=== PATIENT | female | born 1995 | race Caucasian/White ===

== ENCOUNTER → 2018-01-24 | Outpatient (CLI) | payer BC, MEDICAID | LOC: LABNPT 15:03 | PROVIDERS: ATTEND Obstetrics & Gynecology | DX: O28.8 Other abnormal findings on antenatal screening of mother (principal) | CPT/HCPCS: 82570; 84156 ==

== ENCOUNTER → 2018-01-31 | Outpatient (CLI) | payer MEDICAID | LOC: LABNPT 11:02 | PROVIDERS: ATTEND Obstetrics & Gynecology | DX: Z53.9 Procedure and treatment not carried out, unspecified reason (principal) ==

== ENCOUNTER → 2018-01-31 | Outpatient (CLI) | payer MEDICAID | LOC: LABNPT 11:07 | PROVIDERS: ATTEND Obstetrics & Gynecology | DX: O28.8 Other abnormal findings on antenatal screening of mother (principal) | CPT/HCPCS: 82570; 84156 ==

== ENCOUNTER 2018-04-04 05:46 | Inpatient (IN) | payer MEDICAID ==
[2018-04-04] VITALS (21 sets, daily range): BP systolic 112–171; BP diastolic 58–101
[~2018-04-04] VITALS: Ht 177.8 cm; Wt 69.9 kg
[2018-04-04] MEDS ORDERED: PREN1TAB79 PO (05:56)
[2018-04-04] MEDS ORDERED: D5 LR IV SOLUTION 1,000 ML IV SCH (06:19)
[2018-04-04 07:05] LABS: BASOPHILS % (AUTO) 0 % (0-10); EOSINOPHILS # (AUTO) 0.1 10^3/uL (0.0-0.3); EOSINOPHILS % (AUTO) 1 % (0-10); HEMATOCRIT 33 % (35-52); HEMOGLOBIN 10.8 G/DL (11.5-16.0); LYMPHOCYTES # (AUTO) 2.4 X 10^3 (1.0-4.0); LYMPHOCYTES % (AUTO) 25 % (12-44); MEAN CORPUSCULAR HEMOGLOBIN 26 PG (25-34); MEAN CORPUSCULAR HGB CONC 32 G/DL (32-36); MEAN CORPUSCULAR VOLUME 80 FL (80-99); MONOCYTES # (AUTO) 0.5 X 10^3 (0.0-1.0); MONOCYTES % (AUTO) 5 % (0-12); NEUTROPHILS # (AUTO) 6.5 X 10^3 (1.8-7.8); NEUTROPHILS % (AUTO) 69 % (42-75); PLATELET COUNT 233 10^3/uL (130-400); RED BLOOD COUNT 4.18 10^6/uL (4.35-5.85); RED CELL DISTRIBUTION WIDTH 17.6 % (10.0-14.5); WHITE BLOOD COUNT 9.5 10^3/uL (4.3-11.0)
[2018-04-04] MEDS ORDERED: BUPIVACAINE SPINAL 0.75% (SENSORCAINE) 2 ML AMP ONE (07:51)
[2018-04-04] MEDS ORDERED: fentaNYL INJECTION 100 MCG/2 ML AMP ONE (07:51)
[2018-04-04] MEDS ORDERED: LIDOCAINE PF 2% 5 ML (XYLOCAINE) VIAL ONE (07:53)
[2018-04-04] MEDS ORDERED: OXYTOCIN/NORMAL SALINE 500 ML IV ONE (07:53)
[2018-04-04] MEDS ORDERED: LIDOCAINE/EPI 2% 1:200,00 (XYLOCAINE) 10 ML VIAL ONE (07:54)
[2018-04-04] MEDS ORDERED: OXYTOCIN/NORMAL SALINE 500 ML IV SCH (07:55)
[2018-04-04] MEDS ORDERED: ONDANSETRON 4 MG/2 ML (SDV) Z0FRAN IVP PRN (08:00)
[2018-04-04] MEDS ORDERED: MEASLES,MUMPS,RUBELLA 1 EA INJ SC ONE (08:00)
[2018-04-04] MEDS ORDERED: TETANUS,DIPTH,PERTUSS P/F (BOOSTRIX) 0.5 ML VIAL IM ONE (08:00)
[2018-04-04] MEDS ORDERED: oxyCODONE/APAP 5/325MG (PERCOCET 5) TABLET PO PRN (08:00)
--- NOTE | 2018-04-04 08:00 | History & Physical ---
History and Physical Date Seen by Provider: Apr 04, 2018 Time Seen by Provider: 07:58 This patient is a 22-year-old 1 white female with an EDC of March putting her at 39-4/7 weeks' gestation. She began kim last evening at about 6 p.m. Contractions increase and progressed through the night. She presented to labor and delivery about 5 a.m. today. She was found to be 3-3 cm dilated. Currently she is 8+ centimeters dilated. She denies rupture membranes or bleeding. She's had no problems with his to date. A GBS culture done after 35 weeks gestation was negative. Allergies are none Medications are vitamins and Flonase Medical social surgical obstetric histories are per the antepartum record HEENT exam is normal Neck is supple no lymphadenopathy no thyromegaly Abdomen is gravid soft nontender nondistended Extremities show no clubbing cyanosis. There is no Homans sign. Pelvic exam shows a cervix 8 cm dilated 90 percent effaced and presenting part is the vertex at the +3 station. The cervix is mid soft. Amniotomy is performed with release a small amount of clear fluid Laboratory Tests 04/04/18 06:50 monitor shows contractions every 2-3 minutes. heart rate pattern is normal and reassuring. Assessment and plan term 39-4/7 weeks' gestation in active labor. Appears that delivery is imminent. Allergies and Home Medications Allergies Coded Allergies: No Known Allergies (Verified Allergy, Unknown, 09/17/06) Home Medications Vit W-Ca,Fe,FA(<1 mg) 1 Each Tablet, 1 EACH PO DAILY, (Reported) Patient Home Medication List Home Medication List Reviewed: Yes Clinical Quality Measures DVT/VTE Risk/Contraindication: Risk Factor Score Per Nursin RFS Level Per Nursing on Admit: 1=Low/No VTE PPX SARAH GARCIA MD Apr 04, 2018 08:00
[2018-04-04] MEDS ORDERED: OXYC1TAB87 PO (08:03)
[2018-04-04] MEDS ORDERED: DOCU100C37 PO (08:03)
[2018-04-04] MEDS ORDERED: IBUP-1780 PO (08:03)
--- NOTE | 2018-04-04 08:03 | Discharge Instructions ---
Discharge Instructions Discharge Medications New, Converted or Re-Newed RX: RX on Chart Patient Instructions Patient Instructions: As directed Return to The Hospital For: As directed Activity & Diet Discharge Diet: No Restrictions Activity as Tolerated: No Orders-Post D/C & Referrals Follow Up Appt: Call to make follow up appt. for patient in 4 weeks. Activity Per routine post vaginal delivery instructions. Diet as tolerated Patient may shower or tub bathe as desired. SARAH GARCIA MD Apr 04, 2018 08:03
[2018-04-04] MEDS: KETOROLAC 30 MG/ML VIAL IV SCH ×2 (10:49→18:25)
[2018-04-04] MEDS: BENZOCAINE/MENTHOL (DERMOPLAST) 56 ML CAN TP PRN (10:49)
--- NOTE | 2018-04-04 12:12 | OPERATIVE REPORT ---
DATE OF SERVICE: 04/04/2018 DELIVERY NOTE The patient delivered by term spontaneous vaginal delivery a viable male with Apgars of 9 and 9 at 1 and 5 minutes respectively, weight of 6 pounds 11 ounces, time of 08:41. Cord blood gas, pH 7.28. The delivered over midline episiotomy under intrathecal analgesia augmented with local in the perineum. The episiotomy was performed at the patient's request when she was unable to push the baby through the perineal body. The infant delivered fairly promptly after the episiotomy was repaired. The was bulb suctioned on delivery of the head and again on completion of delivery. The umbilical cord was doubly clamped and cut by the father. The baby was passed to mother's abdomen. The placenta delivered spontaneously Sapp. It was normal with a 3-vessel cord. The cervix, vagina, rectum, and perineum were examined and found intact, except for the midline episiotomy, which was repaired with a single suture of 3-0 Vicryl in the usual manner to good reapproximation and good hemostasis without difficulty. Estimated blood loss for delivery was around 200 mL. Sponge and needle counts were correct on completion of delivery and the repair. The patient tolerated the delivery and the repair well and remained in the LDR for recovery. The baby remained with mother. Job ID: [id number] DocumentID: [id number] Dictated Date: 04/04/2018 08:58:18 Procurement Intern Date: 04/04/2018 12:11:42 Dictated By: SARAH GARCIA MD
[2018-04-04] MEDS: CATHETER FLUSH 10 ML SYR IV SCH (18:25)
[2018-04-04] MEDS: DOCUSATE SODIUM 100 MG (COLACE) CAP PO SCH ×2 (20:32→21:05)
[2018-04-05] MEDS: KETOROLAC 30 MG/ML VIAL IV SCH ×2 (00:57→19:48)
[2018-04-05 00:58] VITALS: BP 131/89
[2018-04-05] MEDS: CATHETER FLUSH 10 ML SYR IV SCH ×2 (00:58→19:48)
[2018-04-05 04:50] VITALS: BP 117/70
--- NOTE | 2018-04-05 07:40 | Progress Note-Standard ---
Standard Progress Note Progress Notes/Assess & Plan Date Seen by a Provider: Apr 05, 2018 Time Seen by a Provider: 07:39 Progress/Assessment & Plan This patient is without complaint. She is ambulating, voiding, tolerating oral intake well has good pain control. Vital signs are stable patient is afebrile Vital Signs 04/05/18 04:50 Temp 98.8 Pulse 60 Resp 18 B/P (MAP) 117/70 (86) Pulse Ox 98 O2 Delivery Room Air The abdomen is benign. The fundus is firm below the umbilicus nontender. Extreme show no clubbing cyanosis. There is no Homans sign. Assessment and plan day number 1 doing well. Plan is for routine convalescence care today and likely discharge home tomorrow SARAH GARCIA MD Apr 05, 2018 07:40
[2018-04-05] MEDS: IBUPROFEN 800 MG (MOTRIN) TAB PO SCH ×3 (07:53→20:41)
[2018-04-05 08:00] VITALS: BP 127/88
[2018-04-05] MEDS: DOCUSATE SODIUM 100 MG (COLACE) CAP PO SCH ×2 (09:00→20:41)
--- NOTE | 2018-04-05 10:03 | Anesthesia-Regional Post-Op ---
Regional Patient Condition Mental Status: Alert, Oriented x3 Circulation: Same as Pre-Op Headache: Absent Sensation: Full Recovery Motor Block: Absent Post Op Complications Complications None Follow Up Care/Instructions Patient Instructions None needed. Anesthesia/Patient Condition Patient is doing well, no complaints, stable vital signs, no apparent adverse anesthesia problems. No complications reported per nursing. CHARLES VAUGHAN CRNA Apr 05, 2018 10:03
[2018-04-05 14:00] VITALS: BP 117/80
[2018-04-05 20:41] VITALS: BP 130/81
[2018-04-06 02:45] VITALS: BP 126/82
[2018-04-06] MEDS: IBUPROFEN 800 MG (MOTRIN) TAB PO SCH ×2 (02:45→09:32)
--- NOTE | 2018-04-06 08:10 | Progress Note-Standard ---
Standard Progress Note Progress Notes/Assess & Plan Date Seen by a Provider: Apr 06, 2018 Time Seen by a Provider: 08:09 Progress/Assessment & Plan This patient is without complaint. She is ambulating, voiding, tolerating oral intake well has good pain control. Vital signs are stable patient is afebrile Vital Signs 04/05/18 04:50 Temp 98.8 Pulse 60 Resp 18 B/P (MAP) 117/70 (86) Pulse Ox 98 O2 Delivery Room Air The abdomen is benign. The fundus is firm below the umbilicus nontender. Extreme show no clubbing cyanosis. There is no Homans sign. Assessment and plan day number 1 doing well. Plan is for routine convalescence care today and likely discharge home tomorrow April 06, 2018 Patient without complaint. She is ablating, voiding, tolerating oral intake well has good pain control and is requesting discharge home. Vital signs are stable. Patient afebrile. Vital Signs 04/06/18 02:45 Temp 98.2 Pulse 65 Resp 18 B/P (MAP) 126/82 (97) Pulse Ox 98 O2 Delivery Room Air Fundus is firm below the umbilicus is nontender. Extreme show no clubbing cyanosis. There is no Homans sign. There is minimal pretibial pitting edema. Assessment and plan day number 2 doing well status post term spontaneous vaginal delivery. Plan is for discharge home. Final Diagnosis 39 week spontaneous vaginal delivery SARAH GARCIA MD Apr 06, 2018 08:10
[2018-04-06] MEDS ORDERED: TETANUS,DIPTH,PERTUSS P/F (BOOSTRIX) 0.5 ML VIAL IM ONE (08:45)
[2018-04-06] MEDS: BENZOCAINE/MENTHOL (DERMOPLAST) 56 ML CAN TP PRN (09:32)
[2018-04-06] MEDS: DOCUSATE SODIUM 100 MG (COLACE) CAP PO SCH (09:32)
[2018-04-06 09:35] VITALS: BP 128/83
== END 2018-04-06 12:15 | disposition home or self-care (01) | DRG 807 ==
LOC: WSo 05:46 → LDRP 05:50 → WSo 06:15 → LDRP 06:16
PROVIDERS: ADMIT Obstetrics & Gynecology; ATTEND Obstetrics & Gynecology
PROC: 10E0XZZ Delivery of Products of Conception, External Approach (ICD-10-PCS; principal; 2018-04-04)
PROC: 0W8NXZZ Division of Female Perineum, External Approach (ICD-10-PCS; 2018-04-04)
DX: O80 Encounter for full-term uncomplicated delivery (principal); Z3A.39 39 weeks gestation of pregnancy; Z37.0 Single live birth
CPT/HCPCS: 36415; 82570; 84156; 85025; 86850; 86900; 86901; 88307; 99212

== ENCOUNTER 2019-09-04 15:32 | Inpatient (IN) | payer BC, MEDICAID ==
[2019-09-04] VITALS (11 sets, daily range): BP systolic 111–138; BP diastolic 59–84
[~2019-09-04] VITALS: Ht 177.8 cm; Wt 78.0 kg
--- NOTE | 2019-09-04 15:26 | NUR ---
CARY CAMARA presented to unit via ambulatory from ED, accompanied by Mahin , for induction of labor - dilated to [address] Leo's office. Pt not in labor feels only occasional contractions. CARY CAMARA weighed, gowned, voided, and to bed. EFHM and TOCO applied, VS taken. CARY CAMARA oriented to bed controls, call light, TV, heat, and A/C controls.
[~2019-09-04 15:32] MED LIST: DOCU100C37 PO; IBUP-1780 PO; OXYC1TAB87 PO; PREN1TAB79 PO
[2019-09-04] MEDS ORDERED: D5 LR IV SOLUTION 1,000 ML IV SCH (15:39)
[2019-09-04] MEDS ORDERED: MINERAL OIL CONCENTRATE 99.9% 15 ML UDC TOP PRN (15:45)
[2019-09-04 15:52] LABS: BASOPHILS % (AUTO) 0 % (0-10); EOSINOPHILS # (AUTO) 0.1 10^3/uL (0.0-0.3); EOSINOPHILS % (AUTO) 1 % (0-10); HEMATOCRIT 37 % (35-52); HEMOGLOBIN 11.6 G/DL (11.5-16.0); LYMPHOCYTES # (AUTO) 2.3 X 10^3 (1.0-4.0); LYMPHOCYTES % (AUTO) 23 % (12-44); MEAN CORPUSCULAR HEMOGLOBIN 25 PG (25-34); MEAN CORPUSCULAR HGB CONC 32 G/DL (32-36); MEAN CORPUSCULAR VOLUME 79 FL (80-99); MEAN PLATELET VOLUME 11.8 FL (7.4-10.4); MONOCYTES # (AUTO) 0.7 X 10^3 (0.0-1.0); MONOCYTES % (AUTO) 7 % (0-12); NEUTROPHILS # (AUTO) 6.8 X 10^3 (1.8-7.8); NEUTROPHILS % (AUTO) 69 % (42-75); PLATELET COUNT 226 10^3/uL (130-400); RED CELL DISTRIBUTION WIDTH 15.5 % (10.0-14.5); WHITE BLOOD COUNT 9.9 10^3/uL (4.3-11.0)
[2019-09-04] MEDS ORDERED: fentaNYL 2 mcg/ml BUPIVA 0.125 0 ML ONE (16:03)
[2019-09-04] MEDS ORDERED: OXYTOCIN PRE-MIX DRIP 500 ML IV ONE (16:19)
[2019-09-04] MEDS ORDERED: OXYTOCIN PRE-MIX DRIP 500 ML IV SCH ×2 (16:31→16:32)
--- NOTE | 2019-09-04 16:31 | History & Physical ---
History and Physical Date Seen by Provider: September 04, 2019 Time Seen by Provider: 16:29 This patient is a 24-year-old 2 para 1 white female with an EDC of September 21, 2019 putting her now at just past 37 weeks gestation. She was seen in my c linic on this date found cervix dilates 8 cm +2 station vertex presentation with occasional but persistent contractions. She was seen 2 days ago the cervix was about 6 cm 70 percent and us 1 station. She does indicate that she feels significantly increased pressure in her pelvis and at times an urge to push. She denies rupture membranes or bleeding. Her GBS culture was negative after 35 weeks gestation. She was sent to labor and delivery management. Allergies are none Medications are vitamins Medical social and surgical histories are per the antepartum record HEENT exam is normal Neck supple no lymphadenopathy no thyromegaly Abdomen gravid soft nontender nondistended Extremities show no clubbing or cyanosis there is no Homans sign. Pelvic exam shows cervix now 9 cm plus dilated. Almost percent effaced +3 station. Amniotomy is performed with a small amount of clear fluid released. Patient's last KEMAL was under 40. Laboratory Tests 09/04/19 15:35 Assessment and plan term at 37+ weeks gestation in advanced labor likely with delivery eminent. We anticipate a vaginal delivery shortly 37 weeks in advanced labor Allergies and Home Medications Allergies Coded Allergies: No Known Allergies (Verified Allergy, Unknown, 09/17/06) Home Medications Docusate Sodium 100 Mg Capsule, 100 MG PO BID Prescribed by: SARAH MERCER on 04/04/18 08 Ibuprofen 800 Mg Tablet, 800 MG PO Q6H Prescribed by: SARAH MERCER on 04/04/18 0803 Oxycodone HCl/Acetaminophen 1 Each Tablet, 1 TAB PO Q4H PRN for PAIN-MODERATE Prescribed by: SARAH MERCER on 04/04/18 0803 Vit W-Ca,Fe,FA(<1 mg) 1 Each Tablet, 1 EACH PO DAILY, (Reported) Patient Home Medication List Home Medication List Reviewed: Yes SARAH GARCIA MD September 04, 2019 16:31
[2019-09-04] MEDS ORDERED: OXYC1TAB87 PO (16:35)
[2019-09-04] MEDS ORDERED: IBUP-1780 PO (16:35)
[2019-09-04] MEDS ORDERED: DOCU100C37 PO (16:35)
--- NOTE | 2019-09-04 16:36 | Discharge Inst-Surgical ---
Discharge Inst-Surgical Depart Medication/Instructions New, Converted or Re-Newed RX: RX on Chart Consults/Follow Up Patient Instructions: as directed Orders & Referrals Follow Up Appt: Call to make follow up appt. for patient in 4 weeks. Activity Per routine post vaginal delivery instructions. Please call in RX to patient pharmacy. Diet as tolerated Patient may shower or tub bathe as desired. Activity Activity as Tolerated: No Diet Discharge Diet: No Restrictions SARAH GARCIA MD September 04, 2019 16:36
[2019-09-04] MEDS ORDERED: MEASLES,MUMPS,RUBELLA 1 EA INJ SC ONE (16:45)
[2019-09-04] MEDS ORDERED: ONDANSETRON 4 MG/2 ML (SDV) Z0FRAN IVP PRN (16:45)
[2019-09-04] MEDS ORDERED: TETANUS,DIPTH,PERTUSS P/F (BOOSTRIX) 0.5 ML VIAL IM ONE (16:45)
[2019-09-04] MEDS ORDERED: oxyCODONE/APAP 5/325MG (PERCOCET 5) TABLET PO PRN (16:45)
[2019-09-04] MEDS ORDERED: BENZOCAINE/MENTHOL (DERMOPLAST) 60 ML CAN TP PRN (16:45)
[2019-09-04] MEDS ORDERED: LIDOCAINE/EPI 2% 1:200,00 (XYLOCAINE) 20 ML VIAL ONE (16:57)
[2019-09-04] MEDS: KETOROLAC 30 MG/ML VIAL IVP SCH (17:51)
--- OUTSIDE RECORDS SUMMARY | 2019-09-04 18:49 | XMS REPORT | Continuity of Care Document ---
Author Organization Unknown Address Unknown Phone Unavailable Allergies Active Description Code Type Severity Reaction Onset Reported/Identified Relationship to Patient Clinical Status Yes NKANo Known Allergies NKA Miscellaneous Allergy Unknown N/A 09/17/2006 Medications There is no data. Problems Date Dx Coded Attending Type Code Diagnosis Diagnosed By 01/28/2018 SARAH GARCIA MD, Ot O28.8 OTHER ABNORMAL FINDINGS ON SCR 02/04/2018 SARAH GARCIA MD, Ot Z53.9 PROCEDURE AND TREATMENT NOT CARRIED OUT, 02/06/2018 SARAH GARCIA MD Ot O28.8 OTHER ABNORMAL FINDINGS ON SCR 02/07/2018 SARAH GARCIA MD, Ot O28.8 OTHER ABNORMAL FINDINGS ON SCR 02/21/2018 SARAH GARCIA MD Ot O28.8 OTHER ABNORMAL FINDINGS ON SCR 04/04/2018 SARAH GARCIA MD Ot O28.8 OTHER ABNORMAL FINDINGS ON SCR 04/04/2018 SARAH GARCIA MD, Ot Z53.9 PROCEDURE AND TREATMENT NOT CARRIED OUT, 04/04/2018 SARAH GARCIA MD Ot O28.8 OTHER ABNORMAL FINDINGS ON SCR 04/05/2018 SARAH GARCIA MD Ot O28.8 OTHER ABNORMAL FINDINGS ON SCR 04/05/2018 SARAH GARCIA MD, Ot Z53.9 PROCEDURE AND TREATMENT NOT CARRIED OUT, 04/05/2018 SARAH GARCIA MD, Ot O28.8 OTHER ABNORMAL FINDINGS ON SCR 04/06/2018 SARAH GARCIA MD Ot O80 ENCOUNTER FOR FULL-TERM UNCOMPLICATED DE 04/06/2018 SARAH GARCIA MD, Ot Z37.0 SINGLE LIVE 04/06/2018 SARAH GARCIA MD, Ot Z3A.39 39 WEEKS GESTATION OF 09/04/2019 SARAH GARCIA MD, Ot O28.8 OTHER ABNORMAL FINDINGS ON SCR 09/04/2019 SARAH GARCIA MD, Ot Z53.9 PROCEDURE AND TREATMENT NOT CARRIED OUT, 09/04/2019 SARAH GARCIA MD, Ot O28.8 OTHER ABNORMAL FINDINGS ON SCR Procedures Code Description Performed By Per formed On [id number] DI VISION OF FEMALE PERINEUM, EXTERNAL AP 04/04/2018 [id number] DE LIVERY OF PRODUCTS OF CONCEPTION, EXTE 04/04/2018 Results Test Result Range Urine protein/creatinine mass ratio - 14:00 Urine protein measurement (mass/volume) 137 mg/dL 6-12 Urine creatinine measurement (mass/volume) 101 mg/ dL 30-125 Urine protein/creatinine mass ratio 1.36 NRG Urine protein/creatinine mass ratio - 10:17 Urine protein measurement (mass/volume) 20 mg/dL 6-12 Urine creatinine measurement (mass/volume) 77 mg/d L 30-125 Urine protein/creatinine mass ratio 0.26 NRG Urine protein/creatinine mass ratio - 06:00 Urine protein measurement (mass/volume) 11 mg/dL 6-12 Urine creatinine measurement (mass/volume) 51 mg/d L 30-125 Urine protein/creatinine mass ratio 0.22 NRG Complete blood count (CBC) with automate d white blood cell (WBC) differential - 04/04/18 06:50 Blood leukocytes automated count (number/volume) 9.5 10*3/uL 4.3-11.0 Blood erythrocytes automated count (number/volume) 4.18 10*6/uL 4.35-5.85 Venous blood hemoglobin measurement (mass/volume) 10.8 g/dL 11.5-16.0 Blood hematocrit (volume fraction) 33 % 35-52 Automated erythrocyte mean corpuscular volume 80 [ foz_us] 80-99 Automated erythrocyte mean corpuscular h emoglobin (mass per erythrocyte) 26 pg 25-34 Automated erythrocyte mean corpuscular h emoglobin concentration measurement (mass/volume) 32 g/dL 32-36 Automated erythrocyte distribution width ratio 17. 6 % 10.0- 14.5 Automated blood platelet count (count/volume) 233 10*3/uL 130-400 Automated blood platelet mean volume measurement 12.0 [foz_us] 7.4-10.4 Automated blood neutrophils/100 leukocytes 69 % 42-75 Automated blood lymphocytes/100 leukocytes 25 % 12-44 Blood monocytes/100 leukocytes 5 % 0-12 Automated blood eosinophils/100 leukocytes 1 % 0-10 Automated blood basophils/100 leukocytes 0 % 0-10 Blood neutrophils automated count (number/volume) 6.5 10*3 1.8-7.8 Blood lymphocytes automated count (number/volume) 2.4 10*3 1.0-4.0 Blood monocytes automated count (number/volume) 0. 5 10*3 0.0-1.0 Automated eosinophil count 0.1 10*3/uL 0 .0-0.3 Automated blood basophil count (count/volume) 0.0 10*3/uL 0.0-0.1 Blood type T Indirect antibody screen [facility] [place] - 04/04/18 06:50 ABO+Rh group OP NRG Transfusion band number [id number] NRG Blood group antibody screen NEGATIVE NR G Encounters ACCT No. Visit Date/Time Discharge Status Pt. Type Provider Facility Loc./Unit Complaint [id number] 04/04/2018 06:16:00 12:15:00 DIS Inpatient SARAH GARCIA MD [facility] LD LABOR [id number] 01/31/2018 11:07:00 018 23:59:59 CLS Outpatient SARAH GARCIA MD [facility] LABT [id number] 01/31/2018 11:02:00 018 23:59:59 CLS Outpatient SARAH GARCIA MD [facility] LABNPT [id number] 01/24/2018 15:03:00 018 23:59:59 CLS Outpatient SARAH GARCIA MD [facility] LABT O28.8 [id number] 09/04/2019 15:32:[address] Inpatient SARAH GARCIA MD [facility] LDRP CONTRACTIONS
[2019-09-04] MEDS ORDERED: LACTATED RINGERS 1,000 ML IV SCH (19:15)
--- NOTE | 2019-09-04 19:45 | NUR ---
Pt up standby to bathroom, pericare pads changed, gown changed, pt unable to void at this time, assisted standby to wc and transferred to pp unit room 310 per rn. oriented to surroundings, and info packet, denies needs, will cont to monitor.
--- NOTE | 2019-09-04 21:03 | OPERATIVE REPORT ---
DATE OF SERVICE: 09/04/2019 DELIVERY NOTE The patient delivered by term spontaneous vaginal delivery at 37+ weeks gestation a viable male infant with Apgars of 8 and 9 at 1 and 5 minutes respectively, weight of 6 pounds and 13 ounces. Cord blood pH of 7.31 and a time of 17:08. The was delivered over an intact perineum under bilateral periurethral lacerations. The was bulb suctioned on delivery of the head and again on completion of delivery. Umbilical cord was doubly clamped, father cut the cord, the baby was passed to mom's abdomen. Cord bloods were obtained. The placenta delivered fairly promptly spontaneously Sapp. It was normal with a 3-vessel cord. The cervix, vagina, rectum, and perineum were examined and found intact, except for the bilateral second-degree periurethral lacerations. Both of these were full thickness of the inner aspect of the labia minora and resulted in markedly distortion labia minora. Both were repaired with a single suture of 3-0 Vicryl Rapide in the usual manner to good reapproximation, good hemostasis. Sponge and needle counts were correct on completion of delivery and the repair. Estimated blood loss was around 200 mL. The patient tolerated the delivery and repair well and remained in the LDR for recovery. The baby remained with the mom. Job ID: [id number] DocumentID: [id number] Dictated Date: 09/04/2019 17:24:48 Windshield Repair Technician Date: 09/04/2019 21:02:10 Dictated By: SARAH GARCIA MD MTDD
[2019-09-04] MEDS ORDERED: CATHETER FLUSH 10 ML SYR IV SCH (22:00)
[2019-09-05 00:12] VITALS: BP 132/87
[2019-09-05] MEDS: KETOROLAC 30 MG/ML VIAL IVP SCH ×2 (00:13→06:41)
[2019-09-05] MEDS: DOCUSATE SODIUM 100 MG (COLACE) CAP PO SCH ×2 (00:14→10:06)
[2019-09-05 04:40] VITALS: BP 104/63
--- NOTE | 2019-09-05 07:53 | Progress Note ---
Standard Progress Note Progress Notes/Assess & Plan Date Seen by a Provider: September 05, 2019 Time Seen by a Provider: 07:52 Progress/Assessment & Plan This patient is without complaint. She is ambulating, voiding, tolerating oral intake well has good pain control. Vital Signs Date Time Temp Pulse Resp B/P (MAP) Pulse Ox O2 Delivery O2 Flow Rate FiO2 09/05/19 04:40 37.3 78 18 104/63 (77) 98 Room Air 09/05/19 00:12 37.2 64 18 132/87 (102) 98 Room Air 09/04/19 19:30 67 115/76 (89) 09/04/19 19:27 36.2 67 18 115/76 (89) Room Air 09/04/19 19:15 65 115/67 (83) 09/04/19 19:00 71 116/63 (80) 09/04/19 18:45 71 114/63 (80) 09/04/19 18:30 78 111/68 (82) 09/04/19 18:15 73 117/72 (87) 09/04/19 18:00 41 119/59 (79) 09/04/19 17:45 77 119/75 (90) 09/04/19 17:30 37.5 72 16 112/69 (83) Room Air 09/04/19 15:35 37.0 113 16 100 Room Air I & O 09/05/19 07:00 Intake Total 1000 ml Balance 1000 ml Vital signs are stable. Patient is afebrile. Fundus is firm below the umbilicus and nontender. Extremities show no clubbing or cyanosis. There is no Homans sign. Assessment and plan day number 1 status post spontaneous vaginal delivery at 37+ weeks gestation. Plan is for routine convalescence care Final Diagnosis 37+ week spontaneous vaginal delivery SARAH GARCIA MD September 05, 2019 07:53
[2019-09-05 08:05] VITALS: BP 114/71
[2019-09-05 14:08] VITALS: BP 115/74
[2019-09-05] MEDS ORDERED: IBUPROFEN 800 MG (MOTRIN) TAB PO SCH (16:45)
--- NOTE | 2019-09-05 19:15 | NUR ---
CARY CAMAAR demonstrates understanding of discharge instructions and accurately returns instructions upon questioning. Copy of Post-Discharge Instructions and Medication Discharge Instructions given to patient. CARY CAMARA is able to manage continuing needs after discharge. Patients belongings returned to patient. Skin dry and intact; no breakdown noted. Patient discharged from [facility]- on 09/05/19 at 1915. CARY CAMARA left floor via ambulation, accompanied by women service staff.
== END 2019-09-05 19:15 | disposition home or self-care (01) | DRG 807 ==
LOC: LDRP 15:32
PROVIDERS: ADMIT Obstetrics & Gynecology; ATTEND Obstetrics & Gynecology
PROC: 10E0XZZ Delivery of Products of Conception, External Approach (ICD-10-PCS; principal; 2019-09-04)
PROC: 0UQMXZZ Repair Vulva, External Approach (ICD-10-PCS; 2019-09-04)
DX: O71.82 Other specified trauma to perineum and vulva (principal); Z37.0 Single live birth; Z3A.37 37 weeks gestation of pregnancy; Z23 Encounter for immunization
CPT/HCPCS: 36415; 85025; 86850; 86900; 86901; 90715